=== PATIENT | female | born 1995 | race Two or more races ===

== ENCOUNTER 2019-02-20 08:32 | Inpatient (IN) | payer MEDICAID ==
[~2019-02-20] VITALS: Ht 154.9 cm; Wt 68.0 kg
[2019-02-20] MEDS: LACTATED RINGERS 1,000 ML IV SCH (10:54)
[2019-02-20] MEDS ORDERED: DEXT 5%/LR + PITOCIN 20UNITS/L 1,000 ML IV SCH (11:03)
[2019-02-20] MEDS ORDERED: METHYLERGONOVINE MALEATE 0.2 MG/ML IM PRN (11:15)
[2019-02-20 11:19] LABS: BASOPHILS % 0.6 % (0.0-2.0); CLARITY URINE CLEAR (CLEAR); COLOR URINE YELLOW (YELLOW); EOSINOPHILS % 1.3 % (0.0-5.0); HEMATOCRIT. 32.2 % (36.0-48.0); HEMOGLOBIN. 10.7 g/dL (12.0-16.0); KETONES URINE NEGATIVE (NEGATIVE); LEUKOCYTE ESTERASE URINE NEGATIVE (NEGATIVE); LYMPHOCYTES % 18.2 % (20.0-50.0); MEAN CORPUSCULAR HEMOGLOBIN 25.5 pg (28.0-32.0); MEAN CORPUSCULAR VOLUME 77.1 fL (81.0-99.0); MEAN PLATELET VOLUME 8.9 fl (7.4-10.4); MONOCYTES % 7.4 % (2.0-8.0); NEUTROPHILS % 72.5 % (40.0-76.0); NITRITE URINE NEGATIVE (NEGATIVE); OCCULT BLOOD URINE NEGATIVE (NEGATIVE); PH URINE 6.5 (4.5-8.0); PLATELET 196 x1000/uL (130-400); PROTEIN URINE NEGATIVE (NEGATIVE); RED BLOOD CELL COUNT 4.18 mill/uL (4.2-5.4); RED CELL DISTRIBUTION WIDTH 16.2 % (11.6-14.6); SPECIFIC GRAVITY URINE 1.014 (1.005-1.030); UROBILINOGEN URINE 0.2 E.U./dL (0.2-1.0)
[2019-02-20 11:26] LABS: INR 0.9; PARTIAL THROMBOPLASTIN TIME 25.3 sec (23.4-31.0); PROTHROMBIN TIME 9.4 sec (9.6-11.0)
[2019-02-20] MEDS ORDERED: CITRIC ACID/SODIUM CITRATE SOLN 30ML UDC PO NR (11:30)
[2019-02-20 11:35] LABS: *AMPHETAMINES SCREEN URINE NEGATIVE (NEGATIVE); *BARBITURATES SCREEN URINE NEGATIVE (NEGATIVE); *BENZODIAZEPINES SCREEN URINE NEGATIVE (NEGATIVE); *COCAINE SCREEN URINE NEGATIVE (NEGATIVE); METHADONE URINE SCREEN NEGATIVE (NEGATIVE)
[2019-02-20 11:36] LABS: CANNABINOID URINE SCREEN NEGATIVE (NEGATIVE); OPIATES URINE SCREEN NEGATIVE (NEGATIVE); PHENCYCLIDINE URINE SCREEN NEGATIVE (NEGATIVE)
[2019-02-20] MEDS ORDERED: FENTANYL CITRATE/PF 50MCG/ML 2ML VIAL ONE (11:40)
[2019-02-20] MEDS ORDERED: MORPHINE SULFATE/PF 1MG/ML 10ML AMP ONE (11:40)
[2019-02-20 12:14] LABS: HEPATITIS B SURFACE ANTIGEN NEGATIVE
[2019-02-20] MEDS ORDERED: HYDROMORPHONE HCL/PF 2MG/ML CPJ IV PRN (12:45)
[2019-02-20] MEDS ORDERED: LABETALOL 5MG/ML SYR 20 MG/4 ML SYRINGE IV PRN (12:45)
[2019-02-20] MEDS ORDERED: MEPERIDINE HCL/PF 25MG/ML CPJ IV PRN (12:45)
[2019-02-20] MEDS ORDERED: ONDANSETRON HCL 4MG/2ML INJ IV PRN (12:45)
[2019-02-20] MEDS ORDERED: EPHEDRINE SULFATE 50MG/ML VIAL ONE (13:00)
[2019-02-20] MEDS ORDERED: CEFAZOLIN SODIUM 1000MG/VIAL ONE (13:00)
[2019-02-20] MEDS ORDERED: OXYTOCIN 10 UNITS/ML 1ML ONE (13:00)
[2019-02-20] MEDS ORDERED: SODIUM CHLORIDE 0.9% 10ML VIAL ONE (13:00)
[2019-02-20 16:30] VITALS: BP 103/67
[2019-02-20 19:30] VITALS: BP 109/77
[2019-02-21] MEDS: LACTATED RINGERS 1,000 ML IV SCH (02:39)
[2019-02-21 04:00] VITALS: BP 106/70
[2019-02-21] MEDS ORDERED: DEXT 5%/LR + PITOCIN 20UNITS/L 1,000 ML IV SCH (04:34)
[2019-02-21] MEDS ORDERED: BISACODYL 10MG SUPP PR PRN (04:45)
[2019-02-21] MEDS ORDERED: IBUPROFEN 400MG TABLET PO PRN (04:45)
[2019-02-21] MEDS ORDERED: HYDROMORPHONE HCL/PF 2MG/ML CPJ IV PRN (04:45)
[2019-02-21] MEDS ORDERED: RHO(D) IMMUNE GLOBULIN 300 MCG/SYR IM PRN (04:45)
[2019-02-21] MEDS: IBUPROFEN 800MG TABLET PO PRN ×2 (05:14→16:42)
[2019-02-21 05:37] LABS: BASOPHILS % 0.4 % (0.0-2.0); EOSINOPHILS % 0.7 % (0.0-5.0); HEMATOCRIT. 29.8 % (36.0-48.0); HEMOGLOBIN. 9.8 g/dL (12.0-16.0); LYMPHOCYTES % 14.8 % (20.0-50.0); MEAN CORPUSCULAR HEMOGLOBIN 25.5 pg (28.0-32.0); MEAN CORPUSCULAR VOLUME 77.1 fL (81.0-99.0); MEAN PLATELET VOLUME 8.8 fl (7.4-10.4); MONOCYTES % 7.3 % (2.0-8.0); NEUTROPHILS % 76.8 % (40.0-76.0); PLATELET 171 x1000/uL (130-400); RED BLOOD CELL COUNT 3.87 mill/uL (4.2-5.4); RED CELL DISTRIBUTION WIDTH 15.8 % (11.6-14.6)
[2019-02-21] MEDS ORDERED: INFLUENZA VIRUS VACCINE(AFLURIA) 0.5ML SYR IM ONE (08:00)
[2019-02-21 08:30] VITALS: BP 105/67
[2019-02-21 15:52] VITALS: BP 100/55
[2019-02-21 20:20] VITALS: BP 104/64
[2019-02-22] MEDS: IBUPROFEN 800MG TABLET PO PRN ×2 (02:50→11:46)
[2019-02-22 04:05] VITALS: BP 108/69
[2019-02-22 07:15] VITALS: BP 101/62
[2019-02-22 14:00] VITALS: BP 105/60
[2019-02-22 19:55] VITALS: BP 109/67
[2019-02-23 04:15] VITALS: BP 110/75
[2019-02-23] MEDS ORDERED: HYDR-4001 MT (05:57)
[2019-02-23] MEDS ORDERED: IBUP-2030 PO (05:57)
[2019-02-23 07:15] VITALS: BP 99/60
== END 2019-02-23 13:15 | disposition home or self-care (01) | DRG 540 ==
LOC: 8 EST LDRP 08:32 → OBSVTOIN 08:32 → 8 EST LDRP 09:27 → 8EST 15:24
PROVIDERS: ADMIT Obstetrics & Gynecology; ATTEND Obstetrics & Gynecology
PROC: 10D00Z1 Extraction of Products of Conception, Low, Open Approach (ICD-10-PCS; principal; 2019-02-20)
DX: O34.219 Maternal care for unspecified type scar from previous cesarean delivery (principal); D62 Acute posthemorrhagic anemia; Z37.0 Single live birth; Z3A.38 38 weeks gestation of pregnancy; O99.03 Anemia complicating the puerperium
CPT/HCPCS: 36415; 80305; 81003; 86592; 86703; 86762; 86850; 86900; 86920; 87340; 88307; 99281; J0690; J2274; J2405; J2590; J3010; J3490; A4315